=== PATIENT | male | born 2000 | race Two or more races ===

== ENCOUNTER 2020-11-28 08:42 | Inpatient (IN) | payer OTHER ==
[~2020-11-28] VITALS: Ht 180.3 cm; Wt 53.0 kg
[2020-11-28] MEDS ORDERED: ESCI20TA87 PO (08:50)
[2020-11-28 09:14] LABS: COVID AG,FIA SOURCE NASOPHARYNGEAL
[2020-11-28] MEDS ORDERED: SODIUM CHLORIDE 0.9% 1,000 ML IV ONE ×2 (09:45→13:00)
[2020-11-28] MEDS ORDERED: ACTIVATED CHARCOAL 50 GM/240 ML SUSPENSION PO ONE (09:45)
[2020-11-28] MEDS ORDERED: ONDANSETRON HCL 4 MG/2 ML VIAL IVP ONE (09:45)
[2020-11-28 09:48] LABS: BASOPHILS % (AUTO) 0.3 % (0.0-2.0); EOSINOPHILS % (AUTO) 0.2 % (1.0-6.0); HEMOGLOBIN 13.4 g/dL (13.5-17.5); LYMPHOCYTES # (AUTO) 1.7 K/uL (1.0-4.8); LYMPHOCYTES % (AUTO) 16.1 % (22.0-44.0); MEAN CORPUSCULAR HEMOGLOBIN 30.4 pg (26.0-34.0); MEAN CORPUSCULAR HGB CONC 33.5 G/dL (31.0-37.0); MEAN CORPUSCULAR VOLUME 91 fL (80-100); MONOCYTES # (AUTO) 0.7 K/uL (0.1-1.0); MONOCYTES % (AUTO) 6.2 % (2.0-9.0); NEUTROPHILS # (AUTO) 8.4 K/uL (1.8-7.7); NEUTROPHILS % (AUTO) 77.2 % (40.0-70.0); PLATELET COUNT (AUTO) 272 K/uL (150-450); RED BLOOD CELL COUNT(AUTO) 4.41 MIL/uL (4.50-5.90); RED CELL DISTRIBUTION WIDTH 12.8 % (11.5-14.5)
[2020-11-28 10:14] LABS: ANION GAP 15 mmol/L (8-16); CALCIUM, TOTAL 9.4 mg/dL (8.8-10.5); CARBON DIOXIDE 24 mmol/L (22-29); CHLORIDE 101 mmol/L (98-107); CREATININE 1.01 mg/dL (0.60-1.30); GLOMERULAR FILTR. RATE CALC > 60 mL/min (>60); GLUCOSE,RANDOM 124 mg/dL (70-110); POTASSIUM 3.3 mmol/L (3.5-5.1); SODIUM SERUM 140 mmol/L (136-145); UREA NITROGEN, BLOOD 10 mg/dL (7-18)
[2020-11-28 10:19] LABS: ALANINE AMINOTRANSFERASE 40 U/L (12-78); ALBUMIN 4.7 g/dL (3.4-5.0); ALKALINE PHOSPHATASE 53 U/L (46-116); ASPARTATE AMINOTRANSFERASE 25 U/L (15-37); BILIRUBIN,TOTAL 0.7 mg/dL (0.1-1.0); TOTAL PROTEIN, SERUM 8.1 g/dL (6.4-8.2)
[2020-11-28 10:22] LABS: ACETAMINOPHEN < 2 mcg/mL (10-30)
[2020-11-28] MEDS ORDERED: POTASSIUM CHLORIDE 20 MEQ ER TABLET PO ONE (11:00)
[2020-11-28 11:20] LABS: SALICYLATE < 0.2 mg/dL (2.8-20.0)
[2020-11-28] MEDS ORDERED: 0.9% SODIUM CHLORIDE 10 ML SYRINGE IVP PRN (13:00)
[2020-11-28 13:05] VITALS: BP 141/74
[2020-11-28 15:58] VITALS: BP 122/62
[2020-11-28] MEDS ORDERED: SODIUM CHLORIDE 0.9% 100 ML ONE (16:15)
[2020-11-28 17:06] LABS: AMPHET/METH SCREEN,URINE NEGATIVE (NEGATIVE); BARBITURATE SCREEN, URINE NEGATIVE (NEGATIVE); BENZODIAZEPINES SCREEN,URINE NEGATIVE (NEGATIVE); CANNABINOID SCREEN,URINE POSITIVE (NEGATIVE); COCAINE SCREEN,URINE NEGATIVE (NEGATIVE); METHADONE SCREEN, URINE NEGATIVE (NEGATIVE); OPIATE SCREEN,URINE NEGATIVE (NEGATIVE)
[2020-11-28 17:08] LABS: PHENCYCLIDINE SCREEN,URINE NEGATIVE (NEGATIVE)
[2020-11-28] MEDS ORDERED: ONDANSETRON HCL 4 MG/2 ML VIAL IVP PRN (19:45)
[2020-11-28] MEDS ORDERED: MAGNESIUM HYDROXIDE SUSPENSION 30 ML UDCUP PO PRN (19:45)
[2020-11-28] MEDS ORDERED: ZOLPIDEM TARTRATE 5 MG TABLET PO PRN (19:45)
[2020-11-28] MEDS ORDERED: ACETAMINOPHEN 325 MG TABLET PO PRN (19:45)
[2020-11-28] MEDS ORDERED: BISACODYL 10 MG RECTAL RECTAL SUPPOSITORY PR PRN (19:45)
[2020-11-28 20:30] VITALS: BP 124/65
[2020-11-28] MEDS: SODIUM CHLORIDE 0.45% 1,000 ML IV SCH (21:05)
[2020-11-29 00:12] VITALS: BP 128/74
[2020-11-29 04:45] VITALS: BP 132/83
[2020-11-29 06:20] LABS: BASOPHILS % (AUTO) 0.1 % (0.0-2.0); EOSINOPHILS % (AUTO) 0.2 % (1.0-6.0); HEMATOCRIT 36.6 % (41-53); HEMOGLOBIN 12.3 g/dL (13.5-17.5); LYMPHOCYTES # (AUTO) 1.9 K/uL (1.0-4.8); LYMPHOCYTES % (AUTO) 18.7 % (22.0-44.0); MEAN CORPUSCULAR HEMOGLOBIN 30.9 pg (26.0-34.0); MEAN CORPUSCULAR HGB CONC 33.6 G/dL (31.0-37.0); MEAN CORPUSCULAR VOLUME 92 fL (80-100); MONOCYTES # (AUTO) 0.8 K/uL (0.1-1.0); MONOCYTES % (AUTO) 7.7 % (2.0-9.0); NEUTROPHILS # (AUTO) 7.3 K/uL (1.8-7.7); NEUTROPHILS % (AUTO) 73.3 % (40.0-70.0); PLATELET COUNT (AUTO) 239 K/uL (150-450); RED BLOOD CELL COUNT(AUTO) 3.98 MIL/uL (4.50-5.90); RED CELL DISTRIBUTION WIDTH 12.6 % (11.5-14.5)
[2020-11-29 06:46] LABS: ALANINE AMINOTRANSFERASE 33 U/L (12-78); ALBUMIN 3.8 g/dL (3.4-5.0); ALKALINE PHOSPHATASE 46 U/L (46-116); ANION GAP 10 mmol/L (8-16); ASPARTATE AMINOTRANSFERASE 18 U/L (15-37); BILIRUBIN,TOTAL 0.8 mg/dL (0.1-1.0); CALCIUM, TOTAL 8.7 mg/dL (8.8-10.5); CARBON DIOXIDE 26 mmol/L (22-29); CHLORIDE 105 mmol/L (98-107); CREATININE 0.88 mg/dL (0.60-1.30); GLOMERULAR FILTR. RATE CALC > 60 mL/min (>60); GLUCOSE,RANDOM 99 mg/dL (70-110); POTASSIUM 3.4 mmol/L (3.5-5.1); SODIUM SERUM 141 mmol/L (136-145); TOTAL PROTEIN, SERUM 6.8 g/dL (6.4-8.2); UREA NITROGEN, BLOOD 5 mg/dL (7-18)
[2020-11-29 07:27] VITALS: BP 132/79
[2020-11-29] MEDS: HEPARIN SODIUM,PORCINE 5,000 UNITS/ML VIAL SQ SCH ×4 (08:58→23:11)
[2020-11-29] MEDS: SODIUM CHLORIDE 0.45% 1,000 ML IV SCH ×2 (11:19→22:46)
[2020-11-29 11:25] VITALS: BP 131/68
[2020-11-29] MEDS ORDERED: POTASSIUM CHLORIDE 20 MEQ ER TABLET PO ONE (12:00)
[2020-11-29 17:50] VITALS: BP 107/59
[2020-11-29 20:18] VITALS: BP 113/66
[2020-11-30 00:22] VITALS: BP 115/62
[2020-11-30 04:39] VITALS: BP 116/64
[2020-11-30 07:34] VITALS: BP 136/70
[2020-11-30] MEDS: HEPARIN SODIUM,PORCINE 5,000 UNITS/ML VIAL SQ SCH ×3 (10:02→23:52)
[2020-11-30 12:00] VITALS: BP 123/71
[2020-11-30] MEDS: SODIUM CHLORIDE 0.45% 1,000 ML IV SCH (14:00)
[2020-11-30 16:00] VITALS: BP 131/70
[2020-11-30 19:32] VITALS: BP 116/60
[2020-12-01] VITALS (7 sets, daily range): BP systolic 18–123; BP diastolic 64–76
[2020-12-01] MEDS: SODIUM CHLORIDE 0.45% 1,000 ML IV SCH ×2 (03:28→15:40)
[2020-12-01] MEDS: HEPARIN SODIUM,PORCINE 5,000 UNITS/ML VIAL SQ SCH ×4 (08:00→23:24)
[2020-12-01] MEDS ORDERED: SPIRONOLACTONE 50 MG TABLET PO SCH (10:00)
[2020-12-01] MEDS ORDERED: ESCITALOPRAM OXALATE 10 MG TABLET PO SCH (15:15)
[2020-12-01] MEDS ORDERED: *CLINICAL-RX DOSING [ENTER DRUG IN COMMENTS] CLINICAL ONE (16:45)
[2020-12-01] MEDS ORDERED: ESTRADIOL VALERATE IM SCH (17:00)
[2020-12-01 20:19] LABS: COVID AG,FIA SOURCE NASOPHARYNGEAL
[2020-12-02 04:11] VITALS: BP 114/63
== END 2020-12-02 05:38 | DRG 918 ==
LOC: EMS 08:42 → 5S 12:02
PROVIDERS: ADMIT Hospitalist; ATTEND Hospitalist
DX: T43.222A Poisoning by selective serotonin reuptake inhibitors, intentional self-harm, initial encounter (principal); R45.851 Suicidal ideations; F33.2 Major depressive disorder, recurrent severe without psychotic features; R44.0 Auditory hallucinations; T40.8X2A Poisoning by lysergide [LSD], intentional self-harm, initial encounter; E87.6 Hypokalemia; F12.10 Cannabis abuse, uncomplicated; R44.1 Visual hallucinations; F64.0 Transsexualism; Z20.822 Contact with and (suspected) exposure to COVID-19; Y92.098 Other place in other non-institutional residence as the place of occurrence of the external cause
CPT/HCPCS: 83735; 84132; 87426; 93005; 99291; A9575; G0480; G0481; J1644; J2405; J7030; J7050

== ENCOUNTER 2020-12-02 06:18 | Inpatient (IN) | payer OTHER ==
[~2020-12-02] VITALS: Ht 177.8 cm; Wt 51.8 kg
[2020-12-02 06:10] VITALS: BP 121/79
[~2020-12-02 06:18] MED LIST: ESCI20TA87 PO
[2020-12-02] MEDS ORDERED: HALOPERIDOL 5 MG TABLET PO PRN ×2 (06:45)
[2020-12-02] MEDS ORDERED: LORazepam 2 MG TABLET PO PRN ×2 (06:45)
[2020-12-02] MEDS ORDERED: ZOLPIDEM TARTRATE 10 MG TABLET PO PRN ×2 (06:45)
[2020-12-02] MEDS ORDERED: IBUPROFEN 400 MG TABLET PO PRN ×2 (07:45→13:15)
[2020-12-02] MEDS ORDERED: ACETAMINOPHEN 325 MG TABLET PO PRN ×2 (07:45→13:15)
[2020-12-02 08:30] VITALS: BP 112/69
[2020-12-02] MEDS: SPIRONOLACTONE 50 MG TABLET PO SCH (08:55)
[2020-12-02] MEDS: ESCITALOPRAM OXALATE 20 MG TABLET PO SCH (08:57)
[2020-12-02 09:00] VITALS: BP 116/68
[2020-12-02] MEDS ORDERED: *NON-FORMULARY MED [ENTER DRUG, DOSE, FREQ IN COMMENTS] CLINICAL SCH (09:00)
[2020-12-02] MEDS ORDERED: MAGNESIUM HYDROXIDE SUSPENSION 30 ML UDCUP PO PRN (13:15)
[2020-12-02] MEDS ORDERED: PETROLATUM,WHITE 28 GM JELLY TP PRN (13:15)
[2020-12-02] MEDS ORDERED: CloNIDine HCL 0.1 MG TABLET PO PRN (13:15)
[2020-12-02] MEDS ORDERED: LOPERAMIDE HCL 2 MG CAPSULE PO PRN (13:15)
[2020-12-02] MEDS ORDERED: ALBUTEROL SULFATE HFA 90 MCG/PUFF 8 GM INHALER IH PRN (13:15)
[2020-12-02] MEDS ORDERED: ONDANSETRON HCL 4 MG TABLET PO PRN (13:15)
[2020-12-02] MEDS ORDERED: MAG HYDROX/AL HYDROX/SIMETH ES 30 ML SUSPENSION UDCUP PO PRN (13:15)
[2020-12-02] MEDS ORDERED: NICOTINE 14 MG/24 HOUR PATCH TD PRN (13:15)
[2020-12-02] MEDS ORDERED: GuaiFENesin/D-METHORPHAN [SUGAR-FREE] 200-20MG/10 ML SYRUP UDCUP PO PRN (13:15)
[2020-12-02] MEDS ORDERED: DOCUSATE SODIUM 100 MG CAPSULE PO PRN (13:15)
[2020-12-02 16:39] VITALS: BP 122/69
[2020-12-03 06:12] LABS: BASOPHILS % (AUTO) 0.4 % (0.0-2.0); EOSINOPHILS % (AUTO) 1.3 % (1.0-6.0); HEMATOCRIT 43.8 % (41-53); HEMOGLOBIN 14.6 g/dL (13.5-17.5); LYMPHOCYTES # (AUTO) 2.6 K/uL (1.0-4.8); LYMPHOCYTES % (AUTO) 29.6 % (22.0-44.0); MEAN CORPUSCULAR HEMOGLOBIN 30.7 pg (26.0-34.0); MEAN CORPUSCULAR HGB CONC 33.3 G/dL (31.0-37.0); MEAN CORPUSCULAR VOLUME 92 fL (80-100); MONOCYTES # (AUTO) 0.7 K/uL (0.1-1.0); MONOCYTES % (AUTO) 7.9 % (2.0-9.0); NEUTROPHILS # (AUTO) 5.2 K/uL (1.8-7.7); NEUTROPHILS % (AUTO) 60.8 % (40.0-70.0); PLATELET COUNT (AUTO) 306 K/uL (150-450); RED BLOOD CELL COUNT(AUTO) 4.75 MIL/uL (4.50-5.90); RED CELL DISTRIBUTION WIDTH 12.5 % (11.5-14.5)
[2020-12-03 06:18] VITALS: BP 109/68
[2020-12-03 06:49] LABS: ALANINE AMINOTRANSFERASE 48 U/L (12-78); ALBUMIN 4.8 g/dL (3.4-5.0); ALKALINE PHOSPHATASE 59 U/L (46-116); ANION GAP 9 mmol/L (8-16); ASPARTATE AMINOTRANSFERASE 34 U/L (15-37); BILIRUBIN,TOTAL 0.9 mg/dL (0.1-1.0); CALCIUM, TOTAL 9.5 mg/dL (8.8-10.5); CARBON DIOXIDE 30 mmol/L (22-29); CHLORIDE 100 mmol/L (98-107); CHOL/HDL RATIO 2.5 (4.2-7.3); CHOLESTEROL 184 mg/dL (131-200); CREATININE 1.04 mg/dL (0.60-1.30); GLOMERULAR FILTR. RATE CALC > 60 mL/min (>60); GLUCOSE,RANDOM 86 mg/dL (70-110); HDL CHOLESTEROL 73 mg/dL (40-60); LDL CHOL (CALC.) 99 mg/dL (0-130); PHOSPHORUS 3.9 mg/dL (2.5-4.9); SODIUM SERUM 139 mmol/L (136-145); TOTAL PROTEIN, SERUM 8.6 g/dL (6.4-8.2); TRIGLYCERIDES 59 mg/dL (15-150); UREA NITROGEN, BLOOD 15 mg/dL (7-18)
[2020-12-03] MEDS: MULTIVITAMINS WITH MINERALS, THERAPEUTIC TABLET PO SCH (07:59)
[2020-12-03] MEDS: SPIRONOLACTONE 50 MG TABLET PO SCH (07:59)
[2020-12-03] MEDS: ESCITALOPRAM OXALATE 20 MG TABLET PO SCH (07:59)
[2020-12-03 08:02] VITALS: BP 132/75
[2020-12-03 16:00] VITALS: BP 100/60
[2020-12-04 08:32] VITALS: BP 116/78
[2020-12-04] MEDS: MULTIVITAMINS WITH MINERALS, THERAPEUTIC TABLET PO SCH (08:44)
[2020-12-04] MEDS: SPIRONOLACTONE 50 MG TABLET PO SCH (08:45)
[2020-12-04] MEDS: ESCITALOPRAM OXALATE 20 MG TABLET PO SCH (09:00)
[2020-12-04] MEDS ORDERED: ESCI-8 PO (16:10)
[2020-12-04] MEDS ORDERED: SPIR50 PO (16:12)
[2020-12-04] MEDS ORDERED: MULT-1239 PO (16:12)
[2020-12-08] MEDS ORDERED: ESTRADIOL VALERATE IM SCH (09:00)
== END 2020-12-04 19:00 | disposition home or self-care (01) | DRG 885 ==
LOC: 3EI 06:18
DX: F33.2 Major depressive disorder, recurrent severe without psychotic features (principal); E46 Unspecified protein-calorie malnutrition; Z68.1 Body mass index [BMI] 19.9 or less, adult; F12.10 Cannabis abuse, uncomplicated; F41.9 Anxiety disorder, unspecified; D64.9 Anemia, unspecified; F64.0 Transsexualism; Z79.899 Other long term (current) drug therapy
CPT/HCPCS: 84100; 87081